=== PATIENT | male | born 1945 ===

== ENCOUNTER 2019-05-14 08:55 | Day surgery (SDC) | payer MEDICARE, OTHER ==
[~2019-05-14] VITALS: Ht 170.2 cm; Wt 88.0 kg
[~2019-05-14 08:55] MED LIST: ALLO300 PO; LATA.005SO BOTHEYES; LOVA40 PO; OMEP20ER PO
--- NOTE | 2019-05-14 11:32 | NUR ---
05/14/19 1132 Chen Waterman FOOD, FLUID. IV DC'D. DC TEACHING OONE. DC'D HOME WITH . GAIT STEADY. NO CO PAIN.
== END 2019-05-14 11:28 | disposition home or self-care (01) ==
LOC: ORSCSDS 08:55
PROVIDERS: Ophthalmology
PROC: 08RK3JZ Replacement of Left Lens with Synthetic Substitute, Percutaneous Approach (ICD-10-PCS; principal; 2019-05-14 10:30)
DX: H25.12 Age-related nuclear cataract, left eye (principal); E78.5 Hyperlipidemia, unspecified; K21.9 Gastro-esophageal reflux disease without esophagitis; Z79.899 Other long term (current) drug therapy
CPT/HCPCS: J2001; J2250; J3010; J3301; J7040; V2632

== ENCOUNTER 2019-06-04 08:09 | Day surgery (SDC) | payer MEDICARE, OTHER ==
[~2019-06-04] VITALS: Ht 167.6 cm; Wt 88.0 kg
== END 2019-06-04 10:14 | disposition home or self-care (01) ==
LOC: ORSCSDS 08:09
PROVIDERS: Ophthalmology
PROC: 08RJ3JZ Replacement of Right Lens with Synthetic Substitute, Percutaneous Approach (ICD-10-PCS; principal; 2019-06-04 09:30)
DX: H25.11 Age-related nuclear cataract, right eye (principal); I10 Essential (primary) hypertension; E78.5 Hyperlipidemia, unspecified; K21.9 Gastro-esophageal reflux disease without esophagitis; G51.0 Bell's palsy; Z79.899 Other long term (current) drug therapy
CPT/HCPCS: J2001; J2250; J3301; J7040; V2788

== ENCOUNTER → 2021-06-16 | Outpatient (CLI) | payer MEDICARE, OTHER | LOC: LAB SHORT 11:48 | DX: R31.9 Hematuria, unspecified (principal) | CPT/HCPCS: 87086 ==

== ENCOUNTER 2021-10-04 08:27 | Day surgery (SDC) | payer MEDICARE, OTHER ==
[~2021-10-04] VITALS: Ht 167.6 cm; Wt 88.0 kg
[2021-10-04] MEDS ORDERED: CLOP75 PO (14:09)
--- NOTE | 2021-10-04 15:29 | NUR ---
PT AMBULATES TO RESTROOM AND BACK WITHOUT DIFF. BILATERAL FEMORAL SITES REMAIN CLEAR,. NO BLEEDING OR HEMATOMA NOTED. VSS. NADN. S/O REMAINS AT BEDSIDE. CALL LIGHT WITHINR EACH.
--- NOTE | 2021-10-04 16:05 | NUR ---
PT AMBULATES TO RESTROOM AND BACK WITHOUT DIFF. VSS. NADN. PT BILATERAL FEMORAL SITES REMAIN CLEAR. NO BLEEDING NOTED. PT AND S/O VERBALIZES UNDERSTANDING WRITTEN AND VERBAL ORDERS. PT IV DC'D. CATH INTACT. PRESSURE DSG APPLIED. PT DC TO HOME VIA S/O BY CHARLES.
== END 2021-10-04 16:57 | disposition home or self-care (01) ==
LOC: MHTC 08:27
DX: I70.213 Atherosclerosis of native arteries of extremities with intermittent claudication, bilateral legs (principal); E78.5 Hyperlipidemia, unspecified; K21.9 Gastro-esophageal reflux disease without esophagitis; Z87.891 Personal history of nicotine dependence; Z88.0 Allergy status to penicillin
CPT/HCPCS: 76937; 99152; 99153; C1753; C1760; C1769; C1876; C1887; C1894; J1644; J2250; J3010; J7030; J7040; Q9967

== ENCOUNTER → 2022-07-10 | Outpatient (CLI) | payer MEDICARE, OTHER ==
[~2022-07-10] MED LIST changes: +CLOP75 PO
== END ==
LOC: PLD 07:48 → LAB SHORT 07:48
DX: L60.2 Onychogryphosis (principal); B35.1 Tinea unguium
CPT/HCPCS: 88304; 88312

== ENCOUNTER 2023-08-28 10:32 | Day surgery (SDC) | payer MEDICARE, OTHER ==
[~2023-08-28] VITALS: Ht 167.6 cm; Wt 81.1 kg
[2023-08-28] VITALS (13 sets, daily range): BP systolic 102–160; BP diastolic 46–111
[~2023-08-28 10:32] MED LIST changes: +PRAZ1 PO; +Prinivil10 MG PO
[2023-08-28] MEDS ORDERED: Lactated Ringer's 1,000 ML IV SCH (11:10)
[2023-08-28] MEDS ORDERED: propofoL 40 ML IV ONE (11:19)
--- NOTE | 2023-08-28 11:19 | NUR ---
Ambulatory in Day Surgery Patient confirms NPO status and agrees with scheduled surgery. Pre-Op teaching done. Pt verbalizes understanding. History, Chart, Medications and Allergies reviewed before start of procedure.Patient States Post-Procedure ride home has been arranged.
[2023-08-28] MEDS ORDERED: Lidocaine 2% 5 ML SDV ONE (11:29)
[2023-08-28] MEDS ORDERED: EpiNEPhrine 1 MG/1 ML 1ML Vial ONE (11:36)
[2023-08-28] MEDS ORDERED: Lidocaine 2% Jelly Uro-Jet ONE (11:41)
--- NOTE | 2023-08-28 11:57 | NUR ---
08/28/23 1157 Mary Rios HISTORY, CHART, MEDICATIONS AND ALLERGIES REVIEWED BEFORE START OF PROCEDURE. PATIENT CONFIRMS NPO STATUS AND AGREES WITH SCHEDULED PROCEDURE. 3-LEAD EKG REVIEWED WITH PHYSICIAN PRIOR TO START OF PROCEDURE. MONITOR INTACT WITH CONTINUOUS PULSE OXIMETRY,CAPNOGRAPHY, 3-LEAD EKG, INTERMITTENT BP. SUPPLEMENTAL O2 TO BE TITRATED THROUGHOUT PROCEDURE TO MAINTAIN O2 SATURATION ABOVE 90%. PATIENT DETERMINED TO BE ASA APPROPRIATE FOR PROPOFOL SEDATION PRIOR TO START OF PROCEDURE BY DR. TADEO.
[2023-08-28] MEDS ORDERED: Midazolam HCl 1MG / ML 2ML Vial ONE (12:33)
--- NOTE | 2023-08-28 14:15 | NUR ---
ASSUMED CARE OF PATIENT. PT LYING IN BED. AT BEDSIDE. NO ACUTE DISTRESS OR NEEDS. PT WAITING FOR APPROPRIATE TIME TO ASSESS SWALLOWING PRIOR TO DISCHARGE.
--- NOTE | 2023-08-28 15:12 | NUR ---
PT TOLERATED WATER AND JUICE WITHOUT DIFFICULTY. DISCHARGE WAS REVIEWED WITH PATIENT AND HIS . PT IN NO ACUTE DISTRESS. PT TRANSFERED TO WHEELCHAIR WITHOUT DIFFICULTY.
== END 2023-08-28 15:05 | disposition home or self-care (01) ==
LOC: ORSCMMR 10:32 → ORD 12:00 → ORSCMMR 12:00
PROVIDERS: Internal Medicine Critical Care Medicine
PROC: 0B9H8ZX Drainage of Lung Lingula, Via Natural or Artificial Opening Endoscopic, Diagnostic (ICD-10-PCS; principal; 2023-08-28 12:00)
DX: J84.9 Interstitial pulmonary disease, unspecified (principal); Z99.81 Dependence on supplemental oxygen; K21.9 Gastro-esophageal reflux disease without esophagitis; E78.5 Hyperlipidemia, unspecified; Z80.52 Family history of malignant neoplasm of bladder; Z79.899 Other long term (current) drug therapy
CPT/HCPCS: 86356; 87070; 87205; 88108; 88312; J0171; J2250; J2704; J7120

== ENCOUNTER → 2024-04-25 | Outpatient (CLI) | payer MEDICARE, OTHER ==
[2024-04-25 10:04] LABS: Source, Urine Voided
[2024-04-25 11:12] LABS: Appearance, Urine Clear (Clear); Bilirubin, Urine Neg (Neg); Blood, Urine 2+ (Neg); Color, Urine Yellow (P-Yellow); Glucose Qualitative, Urine Neg (Neg); Ketones, Urine Neg (Neg); Leukocyte Esterase, Urine 1+ (Neg); Nitrite, Urine Neg (Neg); Protein, Urine 1+ (Neg); Specific Gravity, Urine 1.015 (1.003-1.022); Urobilinogen, Urine NORM (Normal)
[2024-04-25 11:19] LABS: Hyaline Casts 0-2 /lpf (0-2)
[2024-04-25 11:20] LABS: Bacteria Mod /hpf; Squamous Epithelial Cells Not Seen /hpf (Few)
== END ==
LOC: LAB 10:00 → LAB SHORT 10:00 → LAB FUT 04-22 10:50
PROVIDERS: Urology
DX: N40.1 Benign prostatic hyperplasia with lower urinary tract symptoms (principal); R31.0 Gross hematuria
CPT/HCPCS: 81001; 87086

== ENCOUNTER → 2024-06-17 | Outpatient (CLI) | payer MEDICARE, OTHER | LOC: LAB SHORT 12:32 → LAB 12:32 | DX: N48.1 Balanitis (principal); R30.0 Dysuria | CPT/HCPCS: 87086 ==